=== PATIENT | female | born 2000 | race Caucasian/White ===

== ENCOUNTER 2020-06-24 23:06 | Emergency (ER) | payer BC ==
[~2020-06-24] VITALS: Ht 170.2 cm; Wt 79.4 kg
[2020-06-24 23:15] VITALS: Ht 170.2 cm; Wt 79.4 kg
[2020-06-25 01:38] VITALS: BP 116/71
== END 2020-06-25 04:04 | disposition home or self-care (01) ==
LOC: ED 23:06
DX: F41.9 Anxiety disorder, unspecified (principal); R55 Syncope and collapse; F32.9 Major depressive disorder, single episode, unspecified; F43.10 Post-traumatic stress disorder, unspecified